=== PATIENT | female | born 1965 | race Caucasian/White ===

== ENCOUNTER 2021-02-26 11:38 | Outpatient (CLI) | payer OTHER, SELFPAY ==
--- NOTE | 2021-02-26 11:42 | MM_ITS ---
WS: [id number] BILATERAL DIGITAL SCREENING MAMMOGRAPHY WITH CAD CLINICAL INFORMATION: SCREENING HISTORY: Screening mammogram. No current complaints. COMPARISON: TECHNIQUE: Bilateral CC and MLO views. FINDINGS: The breasts are composed of heterogeneous fibroglandular density tissue, which can limit the detectio n of small underlying mass lesions. No suspicious mass, asymmetry, calcifications, or architectural d istortion. No evidence of malignancy. MM/[place] [id number] IMPRESSION: BI-RADS: 1-Negative FOLLOW UP: 1 Year Follow-up Recommend return to annual screening mammography.
== END 2021-02-26 11:39 | disposition home or self-care (01) ==
LOC: RADSHAW 11:40
PROVIDERS: PCP Family Medicine; Visit Provider Family Medicine
DX: Z12.31 Encounter for screening mammogram for malignant neoplasm of breast (principal)
CPT/HCPCS: 77067

== ENCOUNTER 2022-02-10 21:24 | Emergency (ER) | payer OTHER, SELFPAY ==
[2022-02-10 21:27] VITALS: BP 130/84; PULSE 90; RESP 18; TEMP 36.6; O2SAT 99; BMI 34.2
--- NOTE | 2022-02-10 21:33 | ED_ITS ---
HPI - URI/Sore Throat General: Chief Complaint: Upper Respiratory Infection Stated Complaint: allergic reaction Time Seen by Provider: 02/10/22 21:33 History of Present Illness: 56-year-old female comes in today for complaints of of allergic reaction. Patient did not know what she was exposed to but started having swelling in the eyes and nasal drainage bilaterally. Patient reports prior episodes. Patient denies any nausea vomiting or shortness of breath. Patient appears nontoxic. Patient appears in no pain. Associated symptoms: Deny fever(s) Review of Systems Const: Denies: fever(s) Eyes: Reports: eye discharge Physical Exam Const: COMMON NORMALS: no acute distress HENMT: NOSE: Nasal discharge present Eye: COMMON NORMALS: Equal, round and reactive pupils present CONJUNCTIVA: Yes conjunctival abnormal positive bilateral conjunctival injection CORNEA: Yes other (chemosis) PUPIL: Yes Equal, round and reactive pupils present Resp: COMMON NORMALS: normal respiratory effort and clear to auscultation bilaterally AUSCULTATION: clear to auscultation bilaterally Cardio: COMMON NORMALS: regular rate and regular rhythm RATE: regular rate RHYTHM: regular rhythm Extremity: COMMON NORMALS: normal to inspection Skin: COMMON NORMALS: turgor normal GENERAL SKIN EXAM: turgor normal Course Vital Signs: Vital signs: Vital Signs Temperature 97.8 F 02/10/22 21:27 Pulse Rate 90 02/10/22 21:27 Respiratory Rate 18 02/10/22 21:27 Blood Pressure 130/84 02/10/22 21:27 Pulse Oximetry 99 02/10/22 21:27 Oxygen Delivery Me thod 02/10/22 21:27 MDM - URI/Sore Throat Medical Decision Making Patient comes in today for complaints of swelling around the eyes. On exam patient has significant injection to the conjunctiva and edema to the cornea. Patient also has clear nasal discharge. Bilateral TMs are clear. Respirations are even. Lungs are clear to auscultation. Airway is open. Differential diagnosis includes anaphylaxis, allergic reaction, viral syndrome. Patient reports prior episodes due to allergies. We will treat this as an allergic reac tion with prednisolone eyedrops, antihistamine, and 10 mg dexamethasone injection. Encourage fluids rest and follow-up with primary care. Discharge Plan Discharge Patient Disposition: Home Clinical Impression: Chemosis of conjunctiva of both eyes Allergic reaction Qualifiers: Encounter type: initial encounter Qualified Code(s): T78.40XA - Allergy, unspecified, initial encounter Condition: Stable Prescriptions: No Action Basaglar KwikPen U-100 Insulin 100 unit/mL (3 mL) insulin pen 26 unit SUBCUT DAILY insulin lispro [Humalog KwikPen Insulin] 100 unit/mL insulin pen 10 unit SUBCUT BID lisinopril-hydrochlorothiazide 20-12.5 mg tablet 1 tab PO DAILY levothyroxine 112 mcg capsule 112 mcg PO DAILY atorvastatin [Lipitor] 20 mg tablet 20 mg PO DAILY metformin 750 mg tablet extended release 24 hr 1,500 mg PO DAILY Trulicity 1.5 mg/0.5 mL pen injector 1.5 mg SUBCUT .weekly albuterol sulfate [Ventolin HFA] 90 mcg/actuation HFA aerosol inhaler 2 puff INHALATION Q6H PRN levalbuterol HCl [Xopenex] 1.25 mg/3 mL solution for nebulization 1.25 mg INHALATION Q4H ondansetron HCl [Zofran] 4 mg tablet 4 mg PO Q8H Discharge Orders: Discharge ED (Routine); Ordered 02/10/22 Ordered By: Jean-Paul Hernández Referrals: Kaylee Graves MD [Primary Care Provider] - Discharge Diet: Usual diet Discharge Activity: Increase activity as tolerated Patient Instructions: Allergies (ED) Activity Restrictions/Additional Instructions: Continue with steroid eyedrops 1 drop to both eyes twice a day for 7 days. Use Zyrtec or Claritin 1 to 2 tablets 2 times a day as needed for allergy symptoms such as hives, swelling in the eyes, or persistent sneezing. Drink plenty of water. Follow-up with primary care in 2 to 3 days for recheck. Return to ER for worsening symptoms such as increased shortness of breath, nausea vomiting, or new concerns. Coding Level of Care Code ED [employer] Program[employer] for [employer]zy [employer]r
[2022-02-10] MEDS: diphenhydrAMINE 50 mg/mL SDV 1mL IM (21:44)
[2022-02-10] MEDS: dexamethasone 10 mg/mL INJ IM (21:44)
[2022-02-10] MEDS: prednisoLONE 1% Op Susp 5 mL Btl 1 DROP EYE-BOTH (22:21)
[2022-02-10 22:24] VITALS: BP 112/77; PULSE 86; RESP 14; TEMP 36.5; O2SAT 98
== END 2022-02-10 22:29 | disposition home or self-care (01) ==
PROVIDERS: Emergency Provider Nurse Practitioner Family; PCP Family Medicine
DX: T78.40XA Allergy, unspecified, initial encounter (principal); H11.423 Conjunctival edema, bilateral; Z79.899 Other long term (current) drug therapy; Z79.84 Long term (current) use of oral hypoglycemic drugs; Z79.4 Long term (current) use of insulin
CPT/HCPCS: 96372; 99284; J1100; J1200

== ENCOUNTER → 2022-11-01 10:05 | Outpatient (BNVA) | payer OTHER, SELFPAY | PROVIDERS: PCP Family Medicine; Visit Provider Podiatrist Foot & Ankle Surgery | DX: Q66.71 Congenital pes cavus, right foot (principal); Q66.72 Congenital pes cavus, left foot; M77.42 Metatarsalgia, left foot; E11.9 Type 2 diabetes mellitus without complications; Z79.84 Long term (current) use of oral hypoglycemic drugs; Z79.4 Long term (current) use of insulin | CPT/HCPCS: 73630 ==

== ENCOUNTER 2023-07-21 07:49 | Outpatient (CLI) | payer OTHER, SELFPAY ==
--- NOTE | 2023-07-21 07:59 | MM_ITS ---
WS: [id number] VIEWS: MLO and CC views both breasts. 3D digital tomosynthesis is also included in this exam. Comparison made with prior exam of 10/03/2014, 03/17/2016, 02/26/2021,. Findings: There was no sign of mass, architectural distortion or suspicious calcification in either breast. The breasts are extremely dense which lowers the sensitivity of mammography. Impression: MM/[id number] BI-RADS: 1-Negative FOLLOW-UP: 1 Year Follow-up This mammogram was also analyzed by the Computer Aided Detection System R2 Imag e [employer].
== END 2023-07-21 07:50 | disposition home or self-care (01) ==
LOC: RAD 07:49
PROVIDERS: PCP Family Medicine; Visit Provider Family Medicine
DX: Z12.31 Encounter for screening mammogram for malignant neoplasm of breast (principal)
CPT/HCPCS: 77063; 77067

== ENCOUNTER → 2024-07-03 08:18 | Outpatient (BNVA) | payer OTHER, SELFPAY | PROVIDERS: PCP Family Medicine; Visit Provider Nurse Practitioner | DX: M65.332 Trigger finger, left middle finger (principal) | CPT/HCPCS: 73130 ==

== ENCOUNTER 2025-01-09 08:15 | Day surgery (SDC) | payer OTHER, SELFPAY ==
[2025-01-09 08:31] VITALS: BP 105/75; PULSE 107; RESP 18; TEMP 36.6; O2SAT 100; BMI 34.5
--- NOTE | 2025-01-09 08:48 | W.PM.OPSUD ---
Surgery/Procedure H&P Update DATE OF PROCEDURE: January 09, 2025 DATE H&P PERFORMED: 12/17/24 H&P UPDATE INFORMATION: I have reviewed H&P completed within last 30 days, I have examined patient prior to procedure, No changes to prior documentation, Changes to prior documentation as noted here and Risks and benefits of the procedure reviewed PLANNED PROCEDURE: Operation Date: 01/09/25 09:40 Proposed Procedures p Colonoscopy [id number] G0121 Z12.11(Not Applicable) - Cortez Rutherford MD
--- NOTE | 2025-01-09 09:23 | ANES.PREANE2 ---
Pre-Anesthetic Assessment Height/Weight: Height 1.57 m Weight 85.729 kg Temp Pulse Resp BP Pulse Ox O2 Del Method 97.9 F 107 H 18 105/75 100 Room Air 01/09/25 08:31 01/09/25 08:31 01/09/25 08:31 01/09/25 08:31 01/09/25 08:31 01/09/25 08:31 Operation Date: 01/09/25 09:40 Proposed Procedures p Colonoscopy [id number] G0121 Z12.11(Not Applicable) - Cortez Rutherford MD Familial anesthetic complications: None Was Beta Manjinder taken within 24 hours: N/A Was Clonidine taken within 24 hours: N/A Last intake: Intake Last Liquid Date 01/08/25 Last Liquid Time 22:00 Last Solid Date 01/05/25 Last Solid Time 20:00 Social No alcohol and No tobacco Exam alert, oriented x 3, clear to auscultation bilaterally and regular rate & rhythm Airway Mallampati: Class II Dentition: other (mutiple missing) CV/HEM Hypertension Metabolic Diabetes Mellitus, Morbid Obesity and Thyroid Disease Anesthetic Plan ASA status: 3 Anesthesia: MAC Risk of > 500 ml blood loss (7ml/kg in children): No Medications/Allergies Home Medications ?Medication ?Instructions ?Recorded ?Confirmed ?Last Taken ?Type albuterol sulfate 90 mcg/actuation 2 puff inhalation Q6H PRN 08/02/19 01/07/25 Unknown History aerosol inhaler (Ventolin HFA) Shortness Of Breath atorvastatin 20 mg tablet (Lipitor) 20 mg PO DAILY 08/02/19 01/07/25 01/07/25 History insulin lispro 100 unit/mL 10 unit SUBCUT BID PRN high sugar 08/02/19 01/07/25 06/20/23 History subcutaneous pen (Humalog KwikPen (U-100) Insulin) levothyroxine 112 mcg capsule 112 mcg PO DAILY 08/02/19 01/07/25 01/07/25 History lisinopril 20 0.5 tab PO DAILY 08/02/19 01/07/25 01/07/25 History mg-hydrochlorothiazide 12.5 mg tablet metformin 750 mg tablet,extended 1,500 mg PO DAILY 08/02/19 01/07/25 01/07/25 History release 24 hr ondansetron HCl 4 mg tablet 4 mg PO Q8H PRN Nausea And Vomiting 08/02/19 01/07/25 06/12/23 History (Zofran) insulin glargine 100 unit/mL (3 25 unit SUBCUT QAM 06/21/23 01/07/25 01/07/25 History mL) subcutaneous pen (Lantus Solostar U-100 Insulin) tirzepatide 2.5 mg/0.5 mL 2.5 mg SUBCUT .WEEKLY 01/07/25 01/07/25 12/24/24 History subcutaneous pen injector (Mounjaro) Allergies Allergy/AdvReac Type Severity Reaction Status Date / Time Alpha-Gal Allergy Intermediate Rash Verified 01/07/25 10:28 (Ezenqkmrx-Lihtc-2,3-Gala canagliflozin (From [facility]) Allergy Unknown Unknown Verified 01/07/25 10:28 Current Medications Generic Name Dose Route Start Last Admin Trade Name Freq PRN Reason Stop Dose Admin Sodium Chloride 1,000 mls @ 15 mls/hr 01/09/25 08:18 01/09/25 08:39 Sodium Chloride 0.9% IV 01/10/25 08:17 15 mls/hr .Q24H PRN Administration COLONOSCOPY FLUIDS PFSH Anesthesia Medical History Trigger finger, left middle finger Diabetes Social History Smoking and tobacco/nicotine status: never used tobacco/nicotine
--- NOTE | 2025-01-09 10:27 | SUR.OPER ---
cecum time [id number]
[2025-01-09 10:30] VITALS: BP 112/76; PULSE 107; RESP 12; TEMP 36.2; O2SAT 90
[2025-01-09 10:50] VITALS: BP 86/67; PULSE 90; RESP 14; O2SAT 94
[2025-01-09 11:05] VITALS: BP 100/78; PULSE 85; RESP 16; O2SAT 96
--- NOTE | 2025-01-09 15:31 | ANE.PACU2 ---
Inpatient post-anesthesia follow up: Airway intact: Yes Vital signs: Temperature 97.2 F Pulse Rate 85 Respiratory Rate 16 Blood Pressure 100/78 Pulse Oximetry 96 Oxygen Delivery Me thod Room Air Oxygen Flow Rate Fraction of Inspir ed Oxygen Hydration adequate: Yes Nausea and vomiting: No Pain level: 1 Mental status: Baseline
== END 2025-01-09 11:15 | disposition home or self-care (01) ==
PROVIDERS: PCP Nurse Practitioner Family; Visit Provider Surgery
PROC: 0DJD8ZZ Inspection of Lower Intestinal Tract, Via Natural or Artificial Opening Endoscopic (ICD-10-PCS; CPT 45378; principal; 2025-01-09 09:40)
DX: Z12.11 Encounter for screening for malignant neoplasm of colon (principal); R19.5 Other fecal abnormalities; D12.8 Benign neoplasm of rectum; K57.30 Diverticulosis of large intestine without perforation or abscess without bleeding; I10 Essential (primary) hypertension; E11.9 Type 2 diabetes mellitus without complications; E66.01 Morbid (severe) obesity due to excess calories; Z68.34 Body mass index [BMI] 34.0-34.9, adult; E07.9 Disorder of thyroid, unspecified; Z79.4 Long term (current) use of insulin; Z79.84 Long term (current) use of oral hypoglycemic drugs
CPT/HCPCS: 36416; 45385; 82962; 88305; J2704; J7030